=== PATIENT | male | born 1975 | race Caucasian/White ===

== ENCOUNTER 2019-10-05 19:23 | Emergency (ER) | payer OTHER, SELFPAY ==
--- NOTE | ~2019-10-05 | CT_ITS ---
EXAMINATION: CT BRAIN W/O DATE: 10/05/2019 20:16 INDICATION: Headache. Dizziness. TECHNIQUE: Computed tomography (CT) of the head was performed without intravenous contrast. The dose- length product was 605.33 mGy-cm. The mA was adjusted according to patient size. Iterative reconstruc tion technique was employed. COMPARISON: CT dated 02/02/2017 FINDINGS: Normal brain parenchymal volume for age. Normal draper-white differentiation. No acute intrac ranial hemorrhage, infarction, mass or mass effect. No ventriculomegaly or midline shift. Midline sagittal images demonstrate a normal corpus callosum, c raniovertebral junction and sella turcica. Basilar cisterns are patent. Mild mucosal thickening of the maxillary and ethmoid sinuses. Mastoids are pneumatized. IMPRESSION: 1. No acute intracranial abnormality. 2: Mild sinusitis. Reviewed, dictated and finalized at location A.
--- NOTE | ~2019-10-05 | CT_ITS ---
EXAMINATION: CT cervical spine wo con DATE: 10/05/2019 20:20 INDICATION: Syncope. Fall. Neck pain. TECHNIQUE: Computed tomography (CT) of the cervical spine was performed without intravenous contrast. The dose-length product was 442 mGy-cm. Automated exposure control and iterative reconstruction tech nique were employed. COMPARISON: None FINDINGS: There is straightening of cervical lordosis. Prominent dorsal osteophytes present at C3-4, C4-5 and C5-6. Odontoid process within normal limits. No evidence for perched facet. There is mild-mo derate multilevel uncinate hypertrophy. Skull base is unremarkable. Craniovertebral junction within n ormal limits. No significant paraspinal soft tissue abnormality. There are mild uncinate degenerative changes at C3-4 and C4-5. IMPRESSION: 1. No acute abnormality of the cervical spine. Reviewed, dictated and finalized at location A.
--- NOTE | ~2019-10-05 | XR_ITS ---
XR ankle RT min 3V 10/05/2019 20:15 Indication: Right ankle pain after fall Procedure: 3 views right ankle Comparison: No prior studies for comparison. Findings: There is a mildly displaced spiral fracture distal fibular diaphysis. There is an avulsion fracture of the medial malleolus with widening of the medial ankle mortise. Talar dome unremarkable. There are degenerative calcaneal enthesophytes. Impression: 1: Mildly displaced spiral fracture distal fibular diaphysis. 2: Avulsion fracture medial malleolus with widening of the medial ankle mortise. Reviewed, dictated and finalized at location A. Impression: 1: Mildly displaced spiral fracture distal fibular diaphysis. 2: Avulsion fracture medial malleolus with widening of the medial ankle mortis e.
[2019-10-05 19:40] VITALS: BP 115/76; PULSE 92; RESP 18; TEMP 36.3; O2SAT 98
--- NOTE | 2019-10-05 19:40 | ECG_ITS ---
Measurements Intervals [place] Rate: 87 P: 23 RI: 175 QRS: -7 QRSD: 104 T: 24 QT: 349 QTc: 420 Interpretive Statements SINUS RHYTHM POSSIBLE LEFT ATRIAL ENLARGEMENT INCOMPLETE RIGHT BUNDLE BRANCH BLOCK POSSIBLE LEFT VENTRICULAR HYPERTROPHY BASELINE WANDER- V6 BORDERLINE ECG Electronically Signed On 10-07-2019 7:02:10 CDT by Kalpesh Rangel D.O.
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
[2019-10-05] MEDS: SODIUM CHLORIDE 0.9% IV 1,000 ML 999 ML IV CONT (20:25)
--- NOTE | 2019-10-05 20:39 | PC.NURSE ---
[facility] contacted to consult ortho.
[2019-10-05 20:53] LABS: Hematocrit 44.4 % (40.0-54.0); Hemoglobin 14.5 g/dL (14.0-18.0); Mean Corpuscular HGB Conc 32.7 g/dL (32.0-36.0); Mean Corpuscular Hemoglobin 29.8 pg (27.0-31.0); Mean Corpuscular Volume 91.2 fL (78.0-102.0); Mean Platelet Volume 9.3 fl (8.7-11.0); Platelet Count Result 338 K/mm3 (150-420); Red Blood Count 4.87 M/mm3 (4.70-6.10); Red Cell Distribution Width 14.1 % (11.6-14.4); White Blood Count 18.7 K/mm3 (4.8-10.8)
[2019-10-05 20:55] LABS: Partial Thromboplastin Time 25.6 SEC (22.3-31.6); Prothrombin Time 10.5 Seconds (9.64-11.0)
[2019-10-05 21:06] LABS: Alanine Aminotransferase 21 U/L (16-63); Albumin Level 3.9 g/dL (3.4-5.0); Alkaline Phosphatase 62 U/L (46-116); Anion Gap 8.1 mmol/L (7-16); Aspartate Amino Transferase 15 U/L (15-37); Bilirubin,Total 0.5 mg/dL (0.00-1.00); Blood Urea Nitrogen 19 mg/dL (7-18); Calcium 8.8 mg/dL (8.5-10.1); Carbon Dioxide 31 mmol/L (21-32); Chloride 101 mmol/L (98-108); Estimated CRCL calculation 88 ml/min; Estimated Glomerular Filt Rate > 60; Ethanol < 3 mg/dL (0-6); Glucose 124 mg/dL (70-99); Osmolality Calculated 285 mOsm/kg (285-295); Potassium 4.1 mmol/L (3.5-5.1); Sodium 136 mmol/L (136-145); Total Protein 8.2 g/dL (6.4-8.2); Troponin I < 0.02 ng/mL (0.00-0.056)
[2019-10-05 21:34] VITALS: BP 108/85; PULSE 78; RESP 18; O2SAT 98
== END 2019-10-05 22:10 | disposition home or self-care (01) ==
PROVIDERS: Emergency Provider Family Medicine
DX: S82.891A Other fracture of right lower leg, initial encounter for closed fracture (principal); W19.XXXA Unspecified fall, initial encounter
CPT/HCPCS: 36415; 70450; 72125; 73610; 80053; 80307; 84484; 85027; 85610; 85730; 93005; 96360; 99283; 99284; A9270; J7030

== ENCOUNTER 2019-10-07 09:30 | Outpatient (CLI) | payer OTHER, SELFPAY ==
[2019-10-07 09:49] LABS: Basophils Absolute Auto 0.04 K/mm3 (0.00-0.10); Basophils Percent Auto 0.4 % (0.0-1.0); Eosinophils Absolute Auto 0.41 K/mm3 (0.02-0.50); Eosinophils Percent Auto 3.6 % (1.0-6.0); Hematocrit 41.6 % (40.0-54.0); Hemoglobin 13.2 g/dL (14.0-18.0); Immature Granulocyte Absolute 0.04 K/mm3 (0.00-0.00); Immature Granulocyte Percent A 0.4 % (0.0-0.0); Lymphocytes Absolute Auto 1.65 K/mm3 (1.10-4.50); Lymphocytes Percent Auto 14.7 % (18.0-42.0); Mean Corpuscular HGB Conc 31.7 g/dL (32.0-36.0); Mean Corpuscular Hemoglobin 29.3 pg (27.0-31.0); Mean Corpuscular Volume 92.4 fL (78.0-102.0); Monocytes Absolute Auto 0.89 K/mm3 (0.10-0.90); Monocytes Percent Auto 7.9 % (2.0-11.0); Neutrophils Absolute Auto 8.2 K/mm3 (1.7-7.2); Platelet Count Result 291 K/mm3 (150-420); Red Cell Distribution Width 14.5 % (11.6-14.4); White Blood Count 11.3 K/mm3 (4.8-10.8)
[2019-10-07 09:54] LABS: Appearance Urine Clear (Clear); Bilirubin Urine Negative (Negative); Color Urine Yellow (Yellow); Glucose Urine UA Negative (Negative); Ketones Urine Negative (Negative); Leukocyte Esterase Ur Negative LEU/UL (Negative); Nitrate Urine Negative (Negative); Protein Urine Negative (Negative); Specific Grav Ur >= 1.030 (1.010-1.020); Urobilinogen Urine 0.2 mg/dL (0.2-1.0); pH Urine 5.5 (5.0-8.0)
[2019-10-07 09:59] LABS: Add Urine Microscopic? YES; Blood Urine Trace-Intact (Negative); RBC Urine 0-2 /hpf (0-2); WBC Urine 0-3 /hpf (0-3)
[2019-10-07 10:00] LABS: Bacteria Urine Trace /hpf; Mucus Urine Few /lpf
[2019-10-07 10:54] LABS: Erythrocyte Sedimentation Rate 15 mm/hr (0-15)
[2019-10-07 11:11] LABS: RFT Charge Test YES; Rheumatoid Factor Screen Positive (Negative); Rheumatoid Factor Titer 1:4/40 (Negative)
[2019-10-07 13:46] LABS: Alanine Aminotransferase 19 U/L (16-63); Albumin Level 3.5 g/dL (3.4-5.0); Alkaline Phosphatase 56 U/L (46-116); Anion Gap 10.2 mmol/L (7-16); Aspartate Amino Transferase 15 U/L (15-37); Bilirubin,Total 0.4 mg/dL (0.00-1.00); Blood Urea Nitrogen 17 mg/dL (7-18); CRP 5.2 mg/dL (0.0-0.9); Calcium 8.7 mg/dL (8.5-10.1); Carbon Dioxide 29 mmol/L (21-32); Chloride 105 mmol/L (98-108); Estimated Glomerular Filt Rate > 60; Glucose 127 mg/dL (70-99); Osmolality Calculated 293 mOsm/kg (285-295); Potassium 4.2 mmol/L (3.5-5.1); Sodium 140 mmol/L (136-145); Total Protein 7.1 g/dL (6.4-8.2)
== END 2019-10-07 09:31 | disposition home or self-care (01) ==
PROVIDERS: PCP Nurse Practitioner Family; Visit Provider Internal Medicine Rheumatology
DX: M05.79 Rheumatoid arthritis with rheumatoid factor of multiple sites without organ or systems involvement (principal); Z79.899 Other long term (current) drug therapy; Z51.81 Encounter for therapeutic drug level monitoring
CPT/HCPCS: 36415; 80053; 81001; 85025; 85652; 86140; 86430; 86431

== ENCOUNTER 2019-10-08 07:32 | Outpatient (CLI) | payer OTHER, SELFPAY ==
[2019-10-08 19:35] LABS: SARS-CoV-2 RNA PCR Negative
== END 2019-10-08 07:33 | disposition home or self-care (01) ==
LOC: ANHCOVIDDT 07:32
PROVIDERS: PCP Nurse Practitioner Family; Visit Provider Orthopaedic Surgery
DX: Z01.812 Encounter for preprocedural laboratory examination (principal); Z11.59 Encounter for screening for other viral diseases
CPT/HCPCS: 87635; C9803; U0003

== ENCOUNTER 2019-10-10 02:06 | Day surgery (SDC) | payer OTHER, SELFPAY ==
[2019-10-07 16:15] VITALS: BMI 40.1
--- NOTE | 2019-10-09 09:24 | P.PNAN_ITS ---
Anes - Initial Pre Proc Eval Procedure: Operation Date: 10/10/19 09:30 Proposed Procedures p Open Reduction Internal Fixation of Right Ankle Fracture - Mk Hall MD s Right Syndesmosis, Possible Deltoid Ligament Repair - Mk Hall MD Date/Time: 10/09/19 09:24 Surgeon: Mk Hall MD Pre Op Diagnosis: Right Ankle Fracture Patient Data Age: 44 Gender: M Height: 1.78 m Weight: 127.01 kg Allergies Allergy/AdvReac Type Severity Reaction Status Date / Time Contrast Media Allergy Mild Unknown Uncoded 10/07/19 15:48 IVP dye Allergy Mild Unknown Uncoded 10/07/19 15:48 Home Medications Medication Instructions Recorded Confirmed Type methotrexate sodium 10 mg tablet 10 mg PO WEEKLY 03/11/19 10/07/19 History hydrocodone-acetaminophen [[place]] 1 tablet PO Q6H PRN #20 tablet 10/05/19 10/07/19 Rx hydroxychloroquine 200 mg PO BID 10/05/19 10/07/19 History folic acid 1 mg PO DAILY 10/07/19 10/07/19 History ibuprofen 800 mg PO Q6H PRN 10/07/19 10/07/19 History Patient hx anesthesia problems: none Family hx anesthesia problems: none PMFSH Past Medical History Medical History (Updated 10/08/19 @ 12:41 by Alina Keenan, RT(R)) Ankle syndesmosis disruption Closed right fibular fracture Dizziness Lupus (systemic lupus erythematosus) Rheumatoid arthritis Tear of deltoid ligament of right ankle Vertigo Vision abnormalities Family History Family History (Updated 10/08/19 @ 12:42 by Alina Keenan RT(R)) Father Hypertension Other Arthritis Diabetes mellitus Nerve disorder Social History Social History Years smoked: 10 Smoking status: Unknown if ever smoked Tobacco type: cigarettes Second hand tobacco smoke exposure: No Smoking end date: 03/22/04 Alcohol intake: current Alcohol use details: occasionally drink- maybe 3 beers a month Substance use: never Last use: 2004 Living arrangements: with family Spiritual care concerns: No Anes - Eval Final PreProcedure Day of Procedure 10/09/19 09:24 Patient weight: morbidly obese Heart: regular rate and rhythm Lungs: clear to auscultation and normal air movement Airway: Mallampati scale class II Neurological: alert and oriented Last oral intake: >/= 8 hours ASA classification: III Emergent: no Anesthetic plan: proceed Anesthesia type and monitoring: general LMA and standard monitoring Informed Consent: The patient's anesthetic plan and its attendant risks and benefits were discussed with the patient/family/POA. Questions were solicited and answers provided to the satisfaction of the patient/family/POA.
[2019-10-10] VITALS (9 sets, daily range): BP systolic 108–144; BP diastolic 56–91; PULSE 67–91; RESP 14–20; TEMP 36.1–36.6; O2SAT 94–99
--- NOTE | ~2019-10-10 | XR_ITS ---
EXAMINATION: XR surgery orthopedic DATE: 10/10/2019 09:40 INDICATION: ORIF right ankle fracture TECHNIQUE: 3 fluoroscopic spot images of the right ankle were obtained during procedure performed by Dr. Hall . Radiologist was not present for the imaging or procedure. The amount of fluoroscopy time used durin g this procedure was 0.7 minutes. COMPARISON: 10/05/2019 FINDINGS: Interval open reduction and internal fixation of the previously seen comminuted fracture at the dista l diaphysis of the right fibula with a lateral plate and screws. There is also been reduction of the previously subluxed tibiotalar articulation which is fixed with a pair of tightrope type syndesmotic fixations with metallic buttons at both the medial and lateral sides of lucent holes extending across the distal metaphyseal region of the tibia and fibula. Alignment post fixation appears near-anatomic . The tiny avulsion fracture previously seen at the tip of the medial malleolus is not visualized lik patrick collimated beyond the margins of the field of imaging on the frontal projections. IMPRESSION: 1. Near-anatomic alignment post internal fixation of a Barker type C injury pattern at the right ankle . Reviewed, dictated and finalized at location A. IMPRESSION: 1. Near-anatomic alignment post internal fixation of a Barker type C injury gianna cristin at the right ankle.
[2019-10-10] MEDS: LACTATED RINGERS 1,000 ML 30 ML IV CONT ×2 (06:30→10:59)
[2019-10-10] MEDS: KETOROLAC 15 MG/ML VIAL (*BKC) IV PUSH (06:39)
--- NOTE | 2019-10-10 06:46 | WPDHPUPDATE1 ---
History and Physical Update Update Date/Time: 10/10/19 06:46 History and Physical has been reviewed, including an updated exam of the patient. There are NO changes in the patient's condition. Covid test negative Risks, benefits, and alternatives have been discussed and questions answered. Patient agrees to proceed with procedure.
[2019-10-10] MEDS: ceFAZolin 3 GM/D5W 100 ML 100 ML IVPB (08:07)
--- NOTE | 2019-10-10 10:34 | PM.PROC ---
Procedure Note - Detailed Date of procedure: 10/10/19 Pre-op diagnosis: Right Ankle Fracture Right ankle fibular fracture with syndesmosis disruption, deltoid ligament tear Post-op diagnosis: same Procedure performed: open reduction internal fixation fibular fracture, open reduction internal fixation syndesmosis. Description of procedure: Operative indications: Patient is a 44 year-old man who sustained an injury to the right ankle. Radiographs show fibular fracture with displacement. Widening of the ankle mortise noted. disruption of the syndesmosis noted. Patient presents for operative treatment. Full discussion of the risks, benefits and alternatives of surgery was had with the patient. Questions answered. Patient verbalizes understanding and wishes to proceed. What was done: After informed consent, the operative extremity was marked in the preoperative holding area. Patient received intravenous antibiotics. Patient was then taken to the operating room and underwent general anesthesia by the anesthesia team. They were positioned supine on the operating room table. A time-out was performed confirming the patient, site of the surgery, operative plan. Lower extremity then prepped and draped in the usual sterile surgical fashion using ChloraPrep skin solution. Foot and ankle exsanguinated and a thigh tourniquet inflated to 250 mmHg. Longitudinal incision made over the lateral ankle distal fibula with a 15 blade knife. Hemostasis controlled with electrocautery. Full-thickness soft tissue flaps developed and the fascia was incised in line with the skin incision. Fracture identified and cleared with a dental pick, irrigation and rongeur. Fracture reduced and held with bone-holding clamp. Image intensification confirmed reduction of the fracture and the ankle mortise. Fixation achieved with Neutralization with a lateral plate with unicortical screws distal to fracture and bicortical screws proximal to the fracture. Good alignment and stability of the fracture noted. Image intensification used to confirm reduction of the fracture and placement of the hardware. Fibula then reduced in the syndesmosis and verified with image intensification. With the ankle in a neutral position fixation of the syndesmosis achieved with the Arthrex tight rope suture button fixation system. Drill placed from lateral to medial in verified with image intensification. Tight rope passed and secured. Two of these used for fixation. Stress of the ankle performed with good stability of the ankle mortise in all directions. Good stability of the syndesmosis noted. No increased medial widening or instability noted. No deltoid repair indicated Wound thoroughly irrigated with antibiotic solution. Fascia repaired with 00 Vicryl interrupted suture. Subcutaneous tissue repaired with 000 Monocryl interrupted suture and juno for the skin. Sterile dressings applied. bulky dressing and cast applied. Tourniquet released and good capillary refill noted in the toes. Patient awoken from anesthesia, extubated and taken to the recovery room in stable condition. All sponge, needle and instrument counts correct at the end of the case. Palpable dorsalis pedis pulse noted prior to dressing. Implants: Arthrex 10 hole plate with 3.5 mm cortical screws and Arthrex tight rope suture repair x2 Anesthesia: GLMA Surgeon: Mk Hall MD [employer]: 1st administrative support assistant Estimated blood loss (mL): 50 Tourniquet time (min): 65 Drains: No Packing: No Pathology: none sent Complications: None Condition: stable Disposition: PACU
== END 2019-10-10 12:10 | disposition home or self-care (01) ==
PROVIDERS: PCP Nurse Practitioner Family; Visit Provider Orthopaedic Surgery
PROC: (CPT 27829; principal; 2019-10-10 07:30)
PROC: (CPT 27829; 2019-10-10 07:30)
DX: S82.831A Other fracture of upper and lower end of right fibula, initial encounter for closed fracture (principal); S93.431A Sprain of tibiofibular ligament of right ankle, initial encounter; W18.39XA Other fall on same level, initial encounter; M32.9 Systemic lupus erythematosus, unspecified; Z87.891 Personal history of nicotine dependence; E66.01 Morbid (severe) obesity due to excess calories; Z68.41 Body mass index [BMI] 40.0-44.9, adult
CPT/HCPCS: 27829; 27792; A9270; C1713; J0690; J1100; J1885; J2001; J2250; J2405; J2704; J3010; J7120

== ENCOUNTER 2019-12-04 14:56 | Outpatient (CLI) | payer OTHER, SELFPAY ==
--- NOTE | ~2019-12-04 | XR_ITS ---
XR shoulder RT min 2V DATE: 12/04/2019 15:17 INDICATION: Fall, right shoulder TECHNIQUE: 4 views COMPARISON: None FINDINGS: No fracture or dislocation, periosteal reaction or bone destruction. There is mild degenerative change at the right acromioclavicular joint. No abnormal soft tissue calc ification. IMPRESSION: Degenerative change at right acromioclavicular joint Reviewed, dictated and finalized at location B.
== END 2019-12-04 14:57 | disposition home or self-care (01) ==
LOC: CHSIMG 14:57
PROVIDERS: PCP Nurse Practitioner Family; Visit Provider Nurse Practitioner Family
DX: M25.511 Pain in right shoulder (principal)
CPT/HCPCS: 73030

== ENCOUNTER 2020-02-01 21:49 | Emergency (ER) | payer OTHER, SELFPAY ==
[2020-02-01 22:05] VITALS: BP 146/77; PULSE 86; RESP 19; TEMP 37.1; O2SAT 98
--- NOTE | 2020-02-01 22:15 | ED.GENADULT ---
HPI - General Adult General Chief complaint: Upper Respiratory Infection Stated complaint: sob Source: patient Mode of arrival: ambulatory Limitations: no limitations History of Present Illness HPI narrative: is a 44M with a PMH of SLE/RA that presented to the ED with 2 weeks of not being able to take a deep breath. He reports that when he lays back he gets the sensation the he cannot get a deep breath. He also feels like he needs to cough something up but can't despite taking mucinex. He had a sinus infection 2 weeks ago treated with non-antibiotic meds and it resolved. However, after this he got the sensation in his chest that he cannot get a deep breath. There is no shortness of breath with exercise or any exercise intolerance. He has had no fevers, chills, N/V, chest pain, near-syncope or syncope, body aches or sick contacts. Related Data Home Medications Medication Instructions Recorded Confirmed folic acid 1 mg PO DAILY 10/07/19 02/01/20 hydroxychloroquine 200 mg PO DAILY 02/01/20 02/01/20 methotrexate sodium 10 mg PO WEEKLY 02/01/20 02/01/20 Allergies Allergy/AdvReac Type Severity Reaction Status Date / Time iohexol Allergy Hives Verified 02/01/20 22:11 [From contrast - CT, X-RAY] Review of Systems Constitutional: Constitutional: Denies chills, Denies fever(s) and Denies weakness Eyes: Eyes: Reports no additional eye complaints ENT: Reports system reviewed and no additional complaints, except as documented Cardiovascular: Cardiovascular: Reports no additional cardiovascular complaints Respiratory: Respiratory: Reports as per HPI Gastrointestinal: Gastrointestinal: Reports no additional gastrointestinal complaints Genitourinary: Genitourinary: Reports no additional male genitourinary complaints Musculoskeletal: Musculoskeletal: Reports no additional musculoskeletal complaints Integumentary/Breasts: Skin/Breast: Reports system reviewed and no additional complaints, except as docu Neurologic: Reports system reviewed and no additional complaints, except as documented Psychiatric: Psychiatric: Reports no additional psychiatric complaints Endocrine: Endocrine: Reports no additional endocrine complaints Hematologic/Lymphatic: Hematologic/Lymphatic: Reports no additional hematologic/lymphatic complaints Allergic/Immunologic: Allergic/Immunologic: Reports no additional allergic/immunologic complaints [facility] Past Medical History Medical History (Updated 02/01/20 @ 22:31 by Henrik Brown DO) Ankle syndesmosis disruption Closed right fibular fracture Dizziness Lupus (systemic lupus erythematosus) Overweight Rheumatoid arthritis Tear of deltoid ligament of right ankle Vertigo Vision abnormalities Family History Family History Father Hypertension Other Arthritis Diabetes mellitus Nerve disorder Social History Social History Years smoked: 10 Tobacco type: cigarettes Second hand tobacco smoke exposure: No Smoking end date: 03/22/04 Alcohol intake: current Substance use: never Spiritual care concerns: No Exam Const: General: no acute distress and alert Orientation/consciousness: patient oriented x3 Limitations: No altered mental status HENMT: Other: normocephalic, atraumatic. Erythematous nasal turbinates Eyes: Conjunctivae: conjunctivae normal Pupils: Equal, round and reactive pupils present Neck: Neck: normal visual inspection Chest: Chest palpation & inspection: normal inspection of the chest Resp: Effort & Inspection: normal respiratory effort Other: Prolonged expiratory phase with end expiratory wheezing. Dry cough present on exam Cardio: Rate: regular rate Rhythm: regular rhythm GI: GI Palp: Yes Soft to palpation, No Tenderness to palpation present (GI) and No Guarding due to palpation present (GI) Urinary Catheter: Urinary Cath
[2020-02-01] MEDS: ALBUTEROL SULFATE NEB 2.5 MG/3 ML INH INHALATION (22:19)
[2020-02-01 22:20] VITALS: PULSE 85; RESP 16; O2SAT 100
[2020-02-01 22:25] VITALS: PULSE 88; RESP 16; O2SAT 97
[2020-02-01 22:43] VITALS: PULSE 88; O2SAT 98
== END 2020-02-01 22:44 | disposition home or self-care (01) ==
PROVIDERS: Emergency Provider Family Medicine; PCP Nurse Practitioner Family
DX: J40 Bronchitis, not specified as acute or chronic (principal); Z87.891 Personal history of nicotine dependence
CPT/HCPCS: 94640; 99283

== ENCOUNTER 2020-02-04 10:58 | Outpatient (CLI) | payer OTHER, SELFPAY ==
--- NOTE | ~2020-02-04 | XR_ITS ---
EXAMINATION: XR chest 2V EXAM DATE: 02/04/2020 11:16 INDICATION: Cough for 2 weeks. History of asthma and COPD. TECHNIQUE: Frontal and lateral projections of the chest obtained and reviewed. Comparison is made to prior examination from 02/22/2014. FINDINGS: The lungs are clear. There are no pleural effusions. The cardiomediastinal silhouette is within normal limits. There is no pneumothorax suspected. The bones and soft tissues are unremarkab le. IMPRESSION: Unremarkable chest x-ray exam. Reviewed, dictated and finalized at location A. [employer]
== END 2020-02-04 10:59 | disposition home or self-care (01) ==
PROVIDERS: PCP Family Medicine; Visit Provider Family Medicine
DX: R05 Cough (principal)
CPT/HCPCS: 71046

== ENCOUNTER 2020-02-17 12:44 | Outpatient (CLI) | payer OTHER, SELFPAY ==
[2020-02-18 22:42] LABS: SARS-CoV-2 RNA PCR Negative
== END 2020-02-17 12:45 | disposition home or self-care (01) ==
LOC: CHSLAB 12:47
PROVIDERS: PCP Family Medicine; Visit Provider Family Medicine
DX: Z20.828 Contact with and (suspected) exposure to other viral communicable diseases (principal)
CPT/HCPCS: 87635; C9803; U0003

== ENCOUNTER 2020-02-25 10:21 | Outpatient (CLI) | payer OTHER, SELFPAY ==
[2020-02-25 10:44] LABS: Hemoglobin A1C 6.1 % (<5.7)
[2020-02-25 11:54] LABS: Alanine Aminotransferase 33 U/L (16-63); Albumin Level 3.7 g/dL (3.4-5.0); Alkaline Phosphatase 69 U/L (46-116); Anion Gap 5 mmol/L (8-16); Aspartate Amino Transferase 13 U/L (15-37); Bilirubin,Total 0.3 mg/dL (0.00-1.00); Blood Urea Nitrogen 19 mg/dL (7-18); Calcium 8.9 mg/dL (8.5-10.1); Carbon Dioxide 31 mmol/L (21-32); Chloride 103 mmol/L (98-108); Cholesterol 144 mg/dL (0-200); Estimated Glomerular Filt Rate > 60; Glucose 103 mg/dL (70-99); HDL Direct 38 mg/dL (40-60); LDL Cholesterol Calculated 95 mg/dL (<130); Osmolality Calculated 290 mOsm/kg (285-295); Potassium 4.7 mmol/L (3.5-5.1); Sodium 139 mmol/L (136-145); Total Protein 7.4 g/dL (6.4-8.2); Triglycerides 55 mg/dL (0-150)
== END 2020-02-25 10:22 | disposition home or self-care (01) ==
LOC: CHSLAB 10:25
PROVIDERS: PCP Nurse Practitioner Family; Visit Provider Nurse Practitioner Family
DX: Z00.00 Encounter for general adult medical examination without abnormal findings (principal); R73.9 Hyperglycemia, unspecified
CPT/HCPCS: 36415; 80053; 80061; 83036

== ENCOUNTER 2020-08-03 00:43 | Emergency (ER) | payer OTHER, SELFPAY ==
--- NOTE | ~2020-08-03 | XR_ITS ---
EXAMINATION: XR chest 2V DATE: 08/03/2020 01:24 INDICATION: Chest pain. TECHNIQUE: Frontal and lateral views of the chest were obtained. COMPARISON: Chest 2 views 02/04/2020 FINDINGS: The chest demonstrates clear lungs without pneumonia, pleural effusion, or pneumothorax. Th e heart size is normal. IMPRESSION: 1. No acute cardiopulmonary disease. Reviewed, dictated and finalized at location A.
--- NOTE | 2020-08-03 00:46 | ECG_ITS ---
Measurements Intervals [place] Rate: 84 P: 43 SD: 152 QRS: 1 QRSD: 104 T: 40 QT: 354 QTc: 420 Interpretive Statements SINUS RHYTHM VOLTAGE CRITERIA FOR LVH BORDERLINE ECG Electronically Signed On 08-03-2020 6:51:42 CDT by Kalpesh Rangel D.O.
[2020-08-03 00:55] VITALS: BP 144/78; PULSE 87; RESP 20; TEMP 36.6; O2SAT 98
[2020-08-03 01:24] LABS: Basophils Absolute Auto 0.05 K/mm3 (0.00-0.10); Basophils Percent Auto 0.5 % (0.0-1.0); Eosinophils Absolute Auto 0.41 K/mm3 (0.02-0.50); Eosinophils Percent Auto 3.8 % (1.0-6.0); Hematocrit 42.8 % (40.0-54.0); Hemoglobin 13.7 g/dL (14.0-18.0); Immature Granulocyte Absolute 0.03 K/mm3 (0.00-0.00); Immature Granulocyte Percent A 0.3 % (0.0-0.0); Lymphocytes Absolute Auto 2.39 K/mm3 (1.10-4.50); Lymphocytes Percent Auto 22.2 % (18.0-42.0); Mean Corpuscular Hemoglobin 28.9 pg (27.0-31.0); Mean Corpuscular Volume 90.3 fL (78.0-102.0); Mean Platelet Volume 9.5 fl (8.7-11.0); Monocytes Absolute Auto 0.97 K/mm3 (0.10-0.90); Neutrophils Absolute Auto 6.9 K/mm3 (1.7-7.2); Neutrophils Percent Auto 64.2 % (50.0-70.0); Platelet Count Result 317 K/mm3 (150-420); Red Blood Count 4.74 M/mm3 (4.70-6.10); Red Cell Distribution Width 13.4 % (11.6-14.4); White Blood Count 10.8 K/mm3 (4.8-10.8)
[2020-08-03 01:35] LABS: D Dimer 0.31 mg/L (0.19-0.50)
[2020-08-03 01:42] LABS: Alanine Aminotransferase 24 U/L (16-63); Albumin Level 3.2 g/dL (3.4-5.0); Alkaline Phosphatase 65 U/L (46-116); Anion Gap 8 mmol/L (8-16); Aspartate Amino Transferase < 10 U/L (15-37); Bilirubin,Total 0.3 mg/dL (0.00-1.00); Blood Urea Nitrogen 14 mg/dL (7-18); Calcium 8.7 mg/dL (8.5-10.1); Carbon Dioxide 31 mmol/L (21-32); Chloride 103 mmol/L (98-108); Estimated Glomerular Filt Rate > 60; Glucose 117 mg/dL (70-99); Lipase 46 U/L (73-393); NT Pro B Type Natriuretic Pept 42 pg/mL (0-125); Osmolality Calculated 295 mOsm/kg (285-295); Potassium 3.4 mmol/L (3.5-5.1); Sodium 142 mmol/L (136-145); Total Protein 7.3 g/dL (6.4-8.2); Troponin I 7.8 ng/L (0.00-60.4)
[2020-08-03 02:05] LABS: Appearance Urine Clear (Clear); Bilirubin Urine Negative (Negative); Color Urine Yellow (Yellow); Glucose Urine UA Negative (Negative); Ketones Urine Negative (Negative); Leukocyte Esterase Ur Negative LEU/UL (Negative); Nitrate Urine Negative (Negative); Protein Urine Negative (Negative); Specific Grav Ur >= 1.030 (1.010-1.020); Urobilinogen Urine 0.2 mg/dL (0.2-1.0); pH Urine 5.5 (5.0-8.0)
[2020-08-03 02:09] LABS: Add Urine Microscopic? YES; Bacteria Urine Trace /hpf; Blood Urine Trace-Intact (Negative); Mucus Urine Moderate /lpf; RBC Urine 0-2 /hpf (0-2); Squamous Epithelial Cell Urine Rare /hpf (Few); WBC Urine None seen /hpf (0-3)
--- NOTE | 2020-08-03 02:26 | ED.CHESTPAIN ---
HPI - Chest Pain General Chief Complaint: Chest Pain Stated Complaint: CHEST PAIN Time Seen by Provider: 08/03/20 00:46 Source: patient Mode of arrival: ambulatory Limitations: no limitations History of Present Illness HPI narrative: this is a 44-year-old gentleman with no previous past medical history nonsmoker presents with chest discomfort that is been going on for the last couple of days episodic off and on with no nausea vomiting no diaphoresis has had some chest congestion with no shortness of breath no fever or chills. Patient denies any past medical history of heart disease no family history of heart disease. The pain is a sharp pain in nature mid sternum to right sternal wall tender with palpation and movement. MD complaint: chest discomfort Onset (ago): day(s) Timing of current episode: episodic Prior episodes: Yes Onset: during rest Pain location: right chest Pain radiation: none Severity: mild Related Data Home Medications Medication Instructions Recorded Confirmed folic acid 1 mg PO DAILY 10/07/19 02/01/20 hydroxychloroquine 200 mg PO DAILY 02/01/20 02/01/20 methotrexate sodium 10 mg PO WEEKLY 02/01/20 02/01/20 Allergies Allergy/AdvReac Type Severity Reaction Status Date / Time iohexol Allergy Hives Verified 02/25/20 10:00 [From contrast - CT, X-RAY] Review of Systems Review of Systems: All systems reviewed & are unremarkable except as noted in HPI and below PMFSH Past Medical History Medical History (Updated 08/03/20 @ 02:30 by Ernst Alfonso MD) Ankle syndesmosis disruption Closed right fibular fracture Dizziness Lupus (systemic lupus erythematosus) Overweight Rheumatoid arthritis Tear of deltoid ligament of right ankle Vertigo Vision abnormalities Family History Family History Father Hypertension Other Arthritis Diabetes mellitus Nerve disorder Social History Social History Years smoked: 10 Smoking status: Former smoker Second hand tobacco smoke exposure: No Smoking end date: 03/22/04 Alcohol intake: current Substance use: never Spiritual care concerns: No Exam Const: General: cooperative, healthy appearing, comfortable, no acute distress, well developed, alert, awake and Physically active HENMT: Head: normal to inspection Ears: hearing grossly normal bilaterally General nose exam: Normal external nose present Face and sinus: normal facial exam Mouth: Yes Normal oral and palatal mucosa present Eyes: General: appearance normal, both eyes and all related structures Neck: Neck: normal visual inspection Chest: Chest palpation & inspection: normal inspection of the chest Resp: Effort & Inspection: normal respiratory effort Cardio: Jugular venous distension: no JVD Palpation: normal PMI Rate: regular rate Rhythm: regular rhythm GI: Inspection: normal to inspection Back/Spine/Pelvis: Back: no CVA tenderness Skin: General skin exam: normal color and no rashes or lesions noted Neuro: General: oriented to person, oriented to place, oriented to time and patient oriented x3 Extrem: General: normal to inspection, full ROM and capillary refill normal Psych: Appearance: grossly normal and well kempt Mental Status: mental status grossly normal Speech and movement: Normal speech and movement present Course Course Emergency Course: Currently no chest pain or chest discomfort it is episodic reviewed labs EKG was reviewed and chest x-ray view reviewed with patient. MDM - Chest Pain Lab Data Result diagrams: 08/03/20 00:58 08/03/20 00:58 Labs: Lab Results 08/03/20 08/03/20 08/03/20 Range/Units 00:57 00:58 00:58 WBC 10.8 (4.8-10.8) K/mm3 RBC 4.74 (4.70-6.10) M/mm3 Hgb 13.7 L (14.0-18.0) g/dL Hct 42.8 (40.0-54.0) % MCV 90.3 (78.0-102.0) fL MCH 28.9 (27.0-31.0) pg
[2020-08-03 02:36] VITALS: BP 152/88; PULSE 88; RESP 20; O2SAT 98
== END 2020-08-03 02:37 | disposition home or self-care (01) ==
PROVIDERS: Emergency Provider Emergency Medicine
DX: R07.89 Other chest pain (principal); M32.9 Systemic lupus erythematosus, unspecified; M06.9 Rheumatoid arthritis, unspecified; E66.3 Overweight; H53.9 Unspecified visual disturbance; Z87.891 Personal history of nicotine dependence
CPT/HCPCS: 36415; 71046; 80053; 81001; 83690; 83880; 84484; 85025; 85380; 93005; 99283; 99284

== ENCOUNTER 2021-12-08 12:25 | Emergency (ER) | payer OTHER, SELFPAY ==
--- NOTE | ~2021-12-08 | XR_ITS ---
EXAMINATION: XR chest 1V portable DATE: 12/08/2021 13:07 INDICATION: Chest tightness. TECHNIQUE: A single frontal view of the chest was obtained on 2 radiographs. COMPARISON: Chest 2 views 08/03/2020 FINDINGS: There is no pneumonia, pleural effusion, or pneumothorax. The heart size is normal. IMPRESSION: 1. No acute cardiopulmonary disease. Reviewed, dictated and finalized at location A.
[2021-12-08 12:29] VITALS: BP 145/100; PULSE 58; RESP 18; TEMP 36.4; O2SAT 100
--- NOTE | 2021-12-08 12:37 | ECG_ITS ---
Measurements Intervals [place] Rate: 63 P: 42 NH: 187 QRS: 10 QRSD: 107 T: 42 QT: 384 QTc: 395 Interpretive Statements SINUS RHYTHM POSSIBLE LEFT ATRIAL ENLARGEMENT LEFT VENTRICULAR HYPERTROPHY BORDERLINE ECG COMPARED TO ECG 08/03/2020 00:55:55 NO SIGNIFICANT CHANGES Electronically Signed On 12-08-2021 14:54:28 CDT by Arturo Macias M.D.
[2021-12-08 13:04] LABS: Basophils Absolute Auto 0.05 K/mm3 (0.00-0.10); Basophils Percent Auto 0.5 % (0.0-1.0); Eosinophils Absolute Auto 0.32 K/mm3 (0.02-0.50); Hematocrit 42.4 % (40.0-54.0); Hemoglobin 13.5 g/dL (14.0-18.0); Immature Granulocyte Absolute 0.04 K/mm3 (0.00-0.00); Immature Granulocyte Percent A 0.4 % (0.0-0.0); Lymphocytes Absolute Auto 1.74 K/mm3 (1.10-4.50); Lymphocytes Percent Auto 16.2 % (18.0-42.0); Mean Corpuscular HGB Conc 31.8 g/dL (32.0-36.0); Mean Corpuscular Hemoglobin 29.2 pg (27.0-31.0); Mean Corpuscular Volume 91.6 fL (78.0-102.0); Mean Platelet Volume 9.2 fl (8.7-11.0); Monocytes Absolute Auto 0.77 K/mm3 (0.10-0.90); Monocytes Percent Auto 7.2 % (2.0-11.0); Neutrophils Absolute Auto 7.8 K/mm3 (1.7-7.2); Neutrophils Percent Auto 72.7 % (50.0-70.0); Platelet Count Result 343 K/mm3 (150-420); Red Blood Count 4.63 M/mm3 (4.70-6.10); Red Cell Distribution Width 13.8 % (11.6-14.4); White Blood Count 10.8 K/mm3 (4.8-10.8)
[2021-12-08 13:27] LABS: Partial Thromboplastin Time 29.6 SEC (23.90-30.70); Prothrombin Time 11.2 Seconds (9.50-12.10)
[2021-12-08 13:33] LABS: Anion Gap 6 mmol/L (8-16); Aspartate Amino Transferase 13 U/L (15-37); Bilirubin,Total 0.6 mg/dL (0.00-1.00); Blood Urea Nitrogen 14 mg/dL (7-18); Calcium 8.6 mg/dL (8.5-10.1); Carbon Dioxide 29 mmol/L (21-32); Chloride 103 mmol/L (98-108); Estimated CRCL calculation 168 ml/min; Estimated Glomerular Filt Rate > 60; Glucose 98 mg/dL (70-99); Osmolality Calculated 286 mOsm/kg (285-295); Potassium 3.9 mmol/L (3.5-5.1); Sodium 138 mmol/L (136-145)
[2021-12-08 13:34] LABS: Alanine Aminotransferase 19 U/L (16-63); Albumin Level 3.4 g/dL (3.4-5.0); Alkaline Phosphatase 59 U/L (46-116); CRP 3.6 mg/dL (0.0-0.9); NT Pro B Type Natriuretic Pept 111 pg/mL (0-125); Total Protein 7.2 g/dL (6.4-8.2); Troponin I 8.1 ng/L (0.00-60.4); Uric Acid 5.1 mg/dL (3.5-7.2)
[2021-12-08 13:46] VITALS: BP 149/98; PULSE 74; RESP 20; O2SAT 97
[2021-12-08 13:55] LABS: Appearance Urine Clear (Clear); Bilirubin Urine Negative (Negative); Blood Urine Negative (Negative); Glucose Urine UA Negative (Negative); Ketones Urine Negative (Negative); Leukocyte Esterase Ur Negative (Negative); Nitrate Urine Negative (Negative); Protein Urine Negative (Negative); Specific Grav Ur 1.015 (1.010-1.020); Urobilinogen Urine 0.2 mg/dL (0.2-1.0); pH Urine 6.5 (5.0-8.0)
[2021-12-08 13:56] LABS: Add Urine Microscopic? NO; Color Urine Light Yellow (Yellow)
[2021-12-08 14:13] LABS: Erythrocyte Sedimentation Rate 14 mm/hr (0-15)
--- NOTE | 2021-12-08 14:56 | ED.GENADULT ---
HPI - General Adult General Chief complaint: Chest Pain Stated complaint: RA flare up Time Seen by Provider: 12/08/21 12:34 Source: patient Mode of arrival: ambulatory History of Present Illness HPI narrative: 46-year-old male with a history of SLE, rheumatoid arthritis, bronchitis presents to the ER with a 1 day history of -- generalized joint pain. It includes the small joints of the hands, the knees ankles and feet -- swelling of MP joints and the PIP joints of both hands. -- Patient feels feverish and sick. -- Anterior chest pain which started around 4:00 a.m.. The pain was unprovoked. No radiation of the pain. No nausea vomiting. No shortness of breath or lightheadedness. Onset (ago): hour(s) ( Joint pain for the past 1 day. chest pain for the past 11 hours) Location: chest, upper extremity and lower extremity Radiation: non-radiation Severity: mild Quality: aching Pain Consistency: constant Relieving factors: none Exacerbating factors: none Associated symptoms: denies other symptoms Treatments prior to arrival: none Related Data Allergies Allergy/AdvReac Type Severity Reaction Status Date / Time iohexol Allergy Hives Verified 11/11/21 13:44 [From contrast - CT, X-RAY] Review of Systems Review of Systems: All systems reviewed & are unremarkable except as noted in HPI and below Constitutional: Constitutional: Reports as per HPI, Reports chills, Reports fatigue and Reports weakness Eyes: Eyes: Reports as per HPI and Reports no additional eye complaints ENT: Reports system reviewed and no additional complaints, except as documented and Reports as per HPI Cardiovascular: Cardiovascular: Reports as per HPI and Reports chest pain Respiratory: Respiratory: Reports as per HPI and Reports no additional respiratory complaints Gastrointestinal: Gastrointestinal: Reports as per HPI and Reports no additional gastrointestinal complaints Genitourinary: Genitourinary: Reports no additional male genitourinary complaints and Reports as per HPI Musculoskeletal: Musculoskeletal: Reports no additional musculoskeletal complaints, Reports as per HPI and Reports arthralgias Integumentary/Breasts: Skin/Breast: Reports system reviewed and no additional complaints, except as docu and Reports as per HPI Neurologic: Reports system reviewed and no additional complaints, except as documented and Reports as per HPI Psychiatric: Psychiatric: Reports no additional psychiatric complaints and Reports as per HPI Endocrine: Endocrine: Reports no additional endocrine complaints and Reports as per HPI Hematologic/Lymphatic: Hematologic/Lymphatic: Reports no additional hematologic/lymphatic complaints and Reports as per HPI Allergic/Immunologic: Allergic/Immunologic: Reports no additional allergic/immunologic complaints and Reports as per HPI PMFSH Past Medical History Medical History Ankle syndesmosis disruption Benign essential HTN Closed right fibular fracture Dizziness Hypokalemia Lupus (systemic lupus erythematosus) Obesity, Class III, BMI 40-49.9 (morbid obesity) Overweight Prediabetes Rheumatoid arthritis Tear of deltoid ligament of right ankle Vertigo Vision abnormalities Family History Family History Father Hypertension Other Arthritis Diabetes mellitus Nerve disorder Social History Social History Years smoked: 10 Smoking status: Former smoker Second hand tobacco smoke exposure: No Smoking end date: 03/22/04 Alcohol intake: current Alcohol use details: occasionally drink- maybe 3 beers a month Substance use: never Spiritual care concerns: No Exam Const: General: ill appearing Nutritional Appearance: well nourished Limitations: no limitations and altered mental status HENMT: Head: normal to inspection Ears: external e
[2021-12-08] MEDS: ONDANSETRON HCL ODT 4 MG TABLET PO (15:15)
[2021-12-08] MEDS: methylPREDNISolone SOD SUCC 125 MG VIAL IM (15:15)
[2021-12-08] MEDS: HYDROmorphone HCL INJ (*CRX) 2 MG/ML VIAL 1 MG IM (15:16)
[2021-12-08 15:34] VITALS: BP 138/99; PULSE 86; RESP 20; TEMP 36.6; O2SAT 97
--- NOTE | 2021-12-08 15:40 | PC.NURSE ---
explained no driving for 12 hours, voiced understanding
== END 2021-12-08 15:39 | disposition home or self-care (01) ==
PROVIDERS: Emergency Provider Internal Medicine Critical Care Medicine; PCP Family Medicine
DX: M06.9 Rheumatoid arthritis, unspecified (principal); R07.9 Chest pain, unspecified
CPT/HCPCS: 36415; 71045; 80053; 81003; 83880; 84484; 84550; 85025; 85610; 85652; 85730; 86140; 93005; 96372; 99284; A9270; J1170; J2930

== ENCOUNTER 2022-03-09 13:12 | Outpatient (CLI) | payer OTHER, SELFPAY ==
--- NOTE | ~2022-03-09 | US_ITS ---
EXAMINATION: US soft tissue UE RT DATE: 03/09/2022 13:41 INDICATION: R22.31 - Localized swelling, mass and lump, right upper limb . TECHNIQUE: Grayscale and Doppler ultrasound images of the were obtained. COMPARISON: None. FINDINGS: 4.1 x 3.9 x 1.5 cm irregular, hypoechoic subcutaneous fluid collection with mild peripheral and no internal vascular flow in the area of clinical concern in the right upper arm. IMPRESSION: Irregular, 4.1 cm subcutaneous fluid collection in the right upper arm, based on imaging may represen t a resolving hematoma, abscess, or necrotic node. Given the history, a subcutaneous abscess is favor ed. Reviewed, dictated and finalized at location K. SSOGRAPH OPERATOR IMPRESSION: Irregular, 4.1 cm subcutaneous fluid collection in the right upper arm, based o n imaging may represent a resolving hematoma, abscess, or necrotic node. Given the history, a subcutaneous abscess is favored.
== END 2022-03-09 13:13 | disposition home or self-care (01) ==
LOC: CHSIMG 13:14
PROVIDERS: PCP Family Medicine; Visit Provider Family Medicine
DX: R22.31 Localized swelling, mass and lump, right upper limb (principal)
CPT/HCPCS: 76882

== ENCOUNTER 2022-06-14 13:08 | Outpatient (CLI) | payer OTHER, SELFPAY ==
--- NOTE | ~2022-06-14 | XR_ITS ---
XR_CERV2-3V_CR 06/14/2022 13:24 Indication: Cervical radiculopathy Procedure: 5 views cervical spine Comparison: No prior studies for comparison. Findings: Straightening of cervical lordosis. Vertebral body heights are maintained. No significant d isc narrowing. No prevertebral soft tissue swelling. Odontoid process is normal. Lung apices are unre markable. Mild multilevel uncinate hypertrophy. Impression: 1: Mild cervical spondylosis. Reviewed, dictated and finalized at location L. Impression: 1: Mild cervical spondylosis.
== END 2022-06-14 13:09 | disposition home or self-care (01) ==
LOC: CHSIMG 13:11
PROVIDERS: PCP Family Medicine; Visit Provider Family Medicine
DX: M54.12 Radiculopathy, cervical region (principal); G95.9 Disease of spinal cord, unspecified; M43.06 Spondylolysis, lumbar region
CPT/HCPCS: 72040

== ENCOUNTER 2023-02-14 09:58 | Outpatient (CLI) | payer OTHER, SELFPAY ==
--- NOTE | ~2023-02-14 | XR_ITS ---
EXAMINATION: XR abdomen/kub 1V INDICATION: Right flank pain and hematuria TECHNIQUE: Supine views of the abdomen were obtained on 2 radiographs. COMPARISON: None FINDINGS: No urolithiasis is identified. The bowel gas pattern is normal. There is mild osteoarthriti s of the hips. IMPRESSION: 1. No urolithiasis identified. Reviewed, dictated and finalized at location L. CTICIDE MAKER
== END 2023-02-14 09:59 | disposition home or self-care (01) ==
LOC: CHSIMG 10:00
PROVIDERS: PCP Nurse Practitioner Family; Visit Provider Nurse Practitioner Family
DX: R10.9 Unspecified abdominal pain (principal)
CPT/HCPCS: 74018

== ENCOUNTER 2023-03-17 15:02 | Outpatient (CLI) | payer OTHER, SELFPAY ==
--- NOTE | ~2023-03-17 | XR_ITS ---
EXAM: XR abdomen/kub 1V DATE: 03/17/2023 15:19 HISTORY: RT flank pain x 4-5 days hematuria 2 wks ago hx kidney stone . COMPARISON: 02/14/2023. FINDINGS: Clear lung bases. Normal bowel gas pattern. No organomegaly. No abnormal abdominal calcifi cation. Mild bilateral hip osteoarthritic arthritis and pelvic enthesopathy. IMPRESSION: No urolithiasis identified. Reviewed, dictated and finalized at location K. OPRACTOR SOLE PRACTITIONER IMPRESSION: No urolithiasis identified.
== END 2023-03-17 15:03 | disposition home or self-care (01) ==
LOC: CHSIMG 15:03
PROVIDERS: PCP Nurse Practitioner Family; Visit Provider Nurse Practitioner Family
DX: M54.9 Dorsalgia, unspecified (principal)
CPT/HCPCS: 74018

== ENCOUNTER 2023-06-28 15:27 | Outpatient (NON) | payer OTHER, SELFPAY ==
[2023-06-28 15:38] LABS: Appearance Urine Clear (Clear); Bilirubin Urine 1+ (Negative); Blood Urine Negative (Negative); Color Urine Dark Yellow (Yellow); Glucose Urine UA Negative (Negative); Ketones Urine Trace (Negative); Leukocyte Esterase Ur Negative LEU/UL (Negative); Nitrate Urine Negative (Negative); Protein Urine Trace (Negative); Specific Grav Ur >= 1.030 (1.010-1.020)
[2023-06-28 15:45] LABS: Add Urine Microscopic? YES; Bacteria Urine 4+ /hpf; Mucus Urine Heavy /lpf; RBC Urine 0-2 /hpf (0-2); Squamous Epithelial Cell Urine Rare /hpf (Few); WBC Urine 0-3 /hpf (0-3)
== END 2023-06-28 15:28 | disposition home or self-care (01) ==
LOC: CHSLAB 15:28
PROVIDERS: Visit Provider Nurse Practitioner Family
DX: N20.0 Calculus of kidney (principal)
CPT/HCPCS: 81001

== ENCOUNTER 2023-06-28 15:44 | Outpatient (CLI) | payer OTHER, SELFPAY ==
[2023-06-28 16:19] LABS: Basophils Absolute Auto 0.05 K/mm3 (0.00-0.10); Basophils Percent Auto 0.5 % (0.0-1.0); Eosinophils Absolute Auto 0.35 K/mm3 (0.02-0.50); Eosinophils Percent Auto 3.2 % (1.0-6.0); Hematocrit 43.5 % (40.0-54.0); Hemoglobin 13.9 g/dL (14.0-18.0); Immature Granulocyte Absolute 0.04 K/mm3 (0.00-0.00); Immature Granulocyte Percent A 0.4 % (0.0-0.0); Lymphocytes Absolute Auto 2.05 K/mm3 (1.10-4.50); Lymphocytes Percent Auto 18.6 % (18.0-42.0); Mean Corpuscular Hemoglobin 29.2 pg (27.0-31.0); Mean Corpuscular Volume 91.4 fL (78.0-102.0); Mean Platelet Volume 9.4 fl (8.7-11.0); Monocytes Percent Auto 8.2 % (2.0-11.0); Neutrophils Absolute Auto 7.63 K/mm3 (1.70-7.20); Neutrophils Percent Auto 69.1 % (50.0-70.0); Platelet Count Result 288 K/mm3 (150-420); Red Blood Count 4.76 M/mm3 (4.70-6.10)
[2023-06-28 16:31] LABS: Hemoglobin A1C 6.1 % (<5.7)
[2023-06-28 16:32] LABS: Alanine Aminotransferase 31 U/L (16-63); Albumin Level 3.6 g/dL (3.4-5.0); Alkaline Phosphatase 64 U/L (46-116); Anion Gap 7 mmol/L (4-12); Aspartate Amino Transferase 13 U/L (15-37); Bilirubin,Total 0.7 mg/dL (0.00-1.00); Blood Urea Nitrogen 22 mg/dL (7-18); Calcium 8.7 mg/dL (8.5-10.1); Carbon Dioxide 31 mmol/L (21-32); Chloride 103 mmol/L (98-108); Cholesterol 154 mg/dL (0-200); Creatine Kinase 39 U/L (39-308); Estimated Glomerular Filt Rate > 60; Glucose 120 mg/dL (70-99); HDL Direct 44 mg/dL (40-60); LDL Cholesterol Calculated 100 mg/dL (<130); Magnesium 1.9 mg/dL (1.8-2.4); Osmolality Calculated 296 mOsm/kg (285-295); Potassium 4.5 mmol/L (3.5-5.1); Sodium 141 mmol/L (136-145); Total Protein 7.3 g/dL (6.4-8.2); Triglycerides 52 mg/dL (0-150); Uric Acid 5.3 mg/dL (3.5-7.2)
[2023-06-29 15:08] LABS: Vitamin D 25 Hydroxy 20 ng/mL (30-100)
== END 2023-06-28 15:45 | disposition home or self-care (01) ==
LOC: CHSLAB 15:46
PROVIDERS: PCP Nurse Practitioner Family; Visit Provider Nurse Practitioner Family
DX: R73.03 Prediabetes (principal); R82.998 Other abnormal findings in urine; M25.50 Pain in unspecified joint; I10 Essential (primary) hypertension; Z79.899 Other long term (current) drug therapy
CPT/HCPCS: 36415; 80053; 80061; 82306; 82550; 83036; 83735; 84550; 85025

== ENCOUNTER 2023-10-25 14:44 | Outpatient (CLI) | payer OTHER, SELFPAY ==
--- NOTE | ~2023-10-25 | XR_ITS ---
EXAMINATION: XR ankle RT min 3V DATE: 10/25/2023 15:13 INDICATION: Right ankle injury and pain. TECHNIQUE: 4 views of right ankle were obtained. COMPARISON: Right ankle radiographs 12/17/2019 FINDINGS: Bone alignment is normal. No acute fracture. There is internal fixation of distal fibula wi th lateral plate and screws. There are 2 fixation bands spanning the distal tibia and fibula. Joint s paces are normal. There are enthesophytes at the posterior and plantar aspects of calcaneal tuberosit y. There is ankle soft tissue swelling. IMPRESSION: 1. No acute fracture. Reviewed, dictated and finalized at location A. IMPRESSION: 1. No acute fracture.
[2023-10-25 15:08] LABS: Basophils Absolute Auto 0.05 K/mm3 (0.00-0.10); Basophils Percent Auto 0.4 % (0.0-1.0); Eosinophils Absolute Auto 0.24 K/mm3 (0.02-0.50); Hematocrit 44.1 % (40.0-54.0); Hemoglobin 14.3 g/dL (14.0-18.0); Immature Granulocyte Absolute 0.04 K/mm3 (0.00-0.00); Immature Granulocyte Percent A 0.3 % (0.0-0.0); Lymphocytes Absolute Auto 1.71 K/mm3 (1.10-4.50); Lymphocytes Percent Auto 14.3 % (18.0-42.0); Mean Corpuscular HGB Conc 32.4 g/dL (32-36); Mean Corpuscular Hemoglobin 29.2 pg (27.0-31.0); Mean Platelet Volume 9.1 fl (8.7-11.0); Monocytes Absolute Auto 0.77 K/mm3 (0.10-0.90); Monocytes Percent Auto 6.4 % (2.0-11.0); Neutrophils Absolute Auto 9.15 K/mm3 (1.70-7.20); Neutrophils Percent Auto 76.6 % (50.0-70.0); Platelet Count Result 352 K/mm3 (150-420); Red Cell Distribution Width 14.1 % (11.6-14.4)
[2023-10-25 15:52] LABS: Alanine Aminotransferase 30 U/L (16-63); Albumin Level 3.6 g/dL (3.4-5.0); Alkaline Phosphatase 78 U/L (46-116); Anion Gap 6 mmol/L (4-12); Aspartate Amino Transferase 17 U/L (15-37); Bilirubin,Total 0.6 mg/dL (0.00-1.00); Blood Urea Nitrogen 18 mg/dL (7-18); Calcium 8.8 mg/dL (8.5-10.1); Carbon Dioxide 31 mmol/L (21-32); Chloride 102 mmol/L (98-108); Estimated Glomerular Filt Rate > 60; Ferritin 106 ng/mL (26-388); Free T4 Free Thyroxine 1.12 ng/dL (0.76-1.46); Glucose 154 mg/dL (70-99); Iron 62 ug/dL (65-175); Osmolality Calculated 292 mOsm/kg (285-295); Potassium 3.9 mmol/L (3.5-5.1); Sodium 139 mmol/L (136-145); Thyroid Stimulating Hormone 1.87 uIU/mL (0.36-3.74); Total Protein 7.2 g/dL (6.4-8.2); Vitamin B12 809 pg/mL (193-986)
[2023-10-27 09:47] LABS: Hemoglobin A1C 6.1 % (<5.7)
[2023-10-27 10:09] LABS: Vitamin D 25 Hydroxy 27 ng/mL (30-100)
[2023-10-29 09:18] LABS: Testosterone Free 36.9 pg/mL (35.0-155.0); Testosterone Total 214 ng/dL (250-1100)
== END 2023-10-25 14:45 | disposition home or self-care (01) ==
LOC: CHSLAB 14:45
PROVIDERS: PCP Nurse Practitioner Family; Visit Provider Nurse Practitioner Family
DX: I10 Essential (primary) hypertension (principal); R53.83 Other fatigue; R73.9 Hyperglycemia, unspecified; E55.9 Vitamin D deficiency, unspecified; Z79.899 Other long term (current) drug therapy; M25.571 Pain in right ankle and joints of right foot; R73.09 Other abnormal glucose
CPT/HCPCS: 36415; 73610; 80053; 82306; 82607; 82728; 83036; 83540; 84402; 84403; 84439; 84443; 85025

== ENCOUNTER 2024-02-14 12:56 | Outpatient (NON) | payer OTHER, SELFPAY ==
[2024-02-14 13:14] LABS: Add Urine Microscopic? NO; Appearance Urine Clear (Clear); Bilirubin Urine Negative (Negative); Blood Urine Trace-intact (Negative); Color Urine Light Yellow (Yellow); Glucose Urine UA Negative (Negative); Ketones Urine Negative (Negative); Leukocyte Esterase Ur Negative LEU/UL (Negative); Nitrate Urine Negative (Negative); Protein Urine Negative (Negative); Specific Grav Ur >= 1.030 (1.010-1.020); Urobilinogen Urine 0.2 mg/dL (0.2-1.0); pH Urine 5.5 (5.0-8.0)
== END 2024-02-14 12:57 | disposition home or self-care (01) ==
LOC: CHSLAB 12:57
PROVIDERS: PCP Nurse Practitioner Family; Visit Provider Nurse Practitioner Family
DX: Z87.898 Personal history of other specified conditions (principal)
CPT/HCPCS: 81003

== ENCOUNTER 2025-01-23 08:07 | Emergency (ER) | payer SELFPAY ==
[2025-01-23] VITALS (48 sets, daily range): BP systolic 135–191; BP diastolic 87–108; PULSE 57–71; RESP 12–21; TEMP 36.1–36.9; O2SAT 95–100
--- NOTE | ~2025-01-23 | CT_ITS ---
EXAMINATION: CT brain wo con COMPARISON: None HISTORY: Chest pain with elevated blood pressure TECHNIQUE: Axial images were obtained through the brain without IV contrast. CT scan performed using dose optimization techniques including the following automated exposure control; adjustment of mA and/or kV; use of iterative reconstruction technique. Automatic exposure control was used to reduce radiation dose. Permanent radiation dose record is archived to PACS. FINDINGS: No acute infarct or parenchymal hemorrhage. No abnormal mass or mass effect. No midline shift. No extra-axial fluid collections. No hydrocephalus. . Mastoid air cells unremarkable. Sinuses and orbits unremarkable. No acute fracture. No significant facial or scalp soft tissue swelling evident. No radiopaque foreign body is seen. Impression: 1.No acute intracranial abnormality. Reviewed, dictated and finalized at location P. OR SAS PROGRAMMER Impression: 1.No acute intracranial abnormality.
--- NOTE | ~2025-01-23 | XR_ITS ---
Examination: XR chest 1V portable Clinical History: Chest pain Comparison: 12/08/2021 Technique: Portable AP Findings: Heart size normal. Lungs clear. No acute bony abnormality. IMPRESSION: 1. No acute cardiopulmonary findings given portable technique. Reviewed, dictated and finalized at location R. O STATION OPERATOR
--- NOTE | ~2025-01-23 | NM_ITS ---
EXAM/PROCEDURE: NM lung vent and perfusion HISTORY: Chest tightness with elevated D-dimer COMPARISON: Portable chest x-ray same date TECHNIQUE: Standard technique for VQ scan performed Radiotracer: 37.3 mCi DTPA used for ventilatory portion of today's exam. 5.2 mCi of microaggregated albumin used for the perfusion phase. FINDINGS: No perfusion or ventilation abnormality identified. IMPRESSION: Negative VQ scan with no evidence of pulmonary embolus. Reviewed, dictated and finalized at location A. E TEAM MEMBER
--- NOTE | 2025-01-23 08:08 | ECG_ITS ---
Test Date: 2025-01-23 08:13:44 Measurements Intervals [place] Rate: 66 P: 54 MS: 193 QRS: 2 QRSD: 104 T: 44 QT: 387 QTc: 406 Interpretive Statements SINUS RHYTHM POSSIBLE RIGHT VENTRICULAR CONDUCTION DELAY [RSR (QR) IN V1/V2] No previous ECG available for comparison Electronically Signed On 01-23-2025 08:38:16 CAT SCANNER OPERATOR by Andrés Monaco M.D.
[2025-01-23] MEDS: METOPROLOL TARTRATE INJ 5 MG/5 ML VIAL IV PUSH (08:29)
[2025-01-23 08:33] LABS: Hematocrit 44.6 % (40.0-54.0); Hemoglobin 13.9 g/dL (14.0-18.0); Immature Granulocyte Percent A 0.3 % (0.0-0.0); Lymphocytes Absolute Auto 1.70 K/mm3 (1.10-4.50); Mean Corpuscular HGB Conc 31.2 g/dL (32-36); Mean Corpuscular Hemoglobin 28.5 pg (27.0-31.0); Mean Corpuscular Volume 91.4 fL (78.0-102.0); Nucleated Red Blood Cells Absolute Auto 0.00 K/mm3 (0.00-0.00); Nucleated Red Blood Cells Perc 0.0 % (0-0.0); Platelet Count Result 305 K/mm3 (150-420); Red Blood Count 4.88 M/mm3 (4.70-6.10); White Blood Count 10.6 K/mm3 (4.8-10.8)
[2025-01-23 08:48] LABS: Alanine Aminotransferase 22 U/L (6-50); Albumin Level 4.3 g/dL (3.5-5.1); Alkaline Phosphatase 66 U/L (38-126); Anion Gap 9 mmol/L (4-12); Aspartate Amino Transferase 24 U/L (17-59); Bilirubin,Total 0.4 mg/dL (0.2-1.3); Blood Urea Nitrogen 24 mg/dL (9-20); Calcium 9.5 mg/dL (8.4-10.2); Carbon Dioxide 30 mmol/L (22-30); Chloride 104 mmol/L (98-107); Estimated Glomerular Filt Rate > 60; Glucose 149 mg/dL (65-110); Lipase 47 U/L (23-300); Osmolality Calculated 303 mOsm/kg (285-295); Potassium 4.6 mmol/L (3.4-5.0); Sodium 143 mmol/L (137-145); Total Protein 7.6 g/dL (6.3-8.2)
[2025-01-23 08:50] LABS: INR 0.9; Partial Thromboplastin Time 26.6 Sec (23.9-30.70); Prothrombin Time 10.4 Seconds (9.50-12.1)
[2025-01-23 08:51] LABS: Add Urine Microscopic? NO; Appearance Urine Clear (Clear); Glucose Urine UA Negative (Negative); Leukocyte Esterase Ur Negative LEU/UL (Negative); Nitrate Urine Negative (Negative); Specific Grav Ur 1.020 (1.010-1.020)
[2025-01-23 09:00] LABS: NT Pro B Type Natriuretic Pept 32 pg/mL (19.9-100); Troponin I < 0.012 ng/mL (0.000-0.034)
[2025-01-23] MEDS: ACETAMINOPHEN 500 MG TABLET 1000 MG PO (09:07)
[2025-01-23 09:09] LABS: Influenza A QL RT-PCR Negative (Negative); Influenza B QL RT-PCR Negative (Negative); RSV RNA, RT-PCR Negative (Negative); SARS-CoV-2 RNA PCR Negative (Negative)
--- NOTE | 2025-01-23 10:49 | ED.ARRPALP ---
HPI - Arrhythmia/Palpitations General Chief Complaint: Arrhythmia/Palpitations Stated Complaint: palpitations/chest pain Source: patient and family Mode of arrival: ambulatory Limitations: no limitations History of Present Illness HPI narrative: This is a 49-year-old male that presents with some elevated blood pressure has been having chest tightness for the last week and a half with no shortness of breath no nausea vomiting no fever chills patient recently obtained a blood pressure monitor and blood pressure according to his home blood pressure readings were above 200 systolic. Patient currently not having any abdominal pain no dysuria no flank pain no hematuria. Patient with a history of a hypertension and was taken off his blood pressure medication approximately 1 year ago with history of lupus. Onset (ago): week(s) Duration: intermittent Severity: moderate Context: occurred during rest Related Data Allergies Allergy/AdvReac Type Severity Reaction Status Date / Time iohexol (From contrast - CT, Allergy Hives Verified 01/23/25 09:57 X-RAY) Review of Systems Review of Systems: All systems reviewed & are unremarkable except as noted in HPI and below PMFSH Past Medical History Medical History Hypokalemia Obesity, Class III, BMI 40-49.9 (morbid obesity) Prediabetes Benign essential HTN Overweight Vertigo Vision abnormalities Dizziness Tear of deltoid ligament of right ankle Ankle syndesmosis disruption Closed right fibular fracture Lupus (systemic lupus erythematosus) Rheumatoid arthritis Surgical History Surgical History History of adenoidectomy S/P foot surgery, right Family History Family History Father Hypertension Other Arthritis Diabetes mellitus Nerve disorder Social History Social History Years smoked: 10 Smoking status: Former smoker Second hand tobacco smoke exposure: No Smoking end date: 03/22/04 Alcohol intake: current Alcohol use details: occasionally drink- maybe 3 beers a month Substance use: never Living arrangements: alone Occupation/Education: occupation Additional occupation/education comments: [employer] Spiritual care concerns: No Exam Const: General: healthy appearing and no acute distress Nutritional Appearance: well nourished Orientation/consciousness: patient oriented x3 Limitations: no limitations Chest: Chest palpation & inspection: normal inspection of the chest Resp: Effort & Inspection: normal respiratory effort Auscultation: clear to auscultation bilaterally Cardio: Rate: regular rate Rhythm: regular rhythm GI: GI Palp: Yes Soft to palpation Auscultation: normal bowel sounds Back/Spine/Pelvis: Back: no CVA tenderness Skin: General skin exam: normal color Rashes: no rashes Neuro: General: patient oriented x3, moves all extremities and no meningeal signs Extrem: General: normal to inspection Course Course Emergency Course: Medical decision making narrative: The patient was evaluated by myself in the emergency department. History obtained from the patient was an independent historian and physical exam performed witnessed by nurse. External medical records were reviewed at this time. EKG performed shows no acute ST or T changes Labs were unremarkable except for elevated D-dimer at 1.21, a V/Q scan ordered and reviewed and negative and reviewed with patient and family. Patient had elevated blood pressure and received 5mg IV metoprolol. Chest x-ray with no acute cardiopulmonary abnormalities. A repeat assessment: Patient doing well repeat exam no acute distress Symptoms have improved since arrival to the emergency department, troponin was negative Repeat vitals have improved blood pressure down to 156/102 initially when he came in it was systolic proximally 190s. Patient is pleased with discussion after radical shared medical decision making and agrees with discharge. All questions answered to the patient's satisfaction. Follow up with primary within next 3 to 5 days. Vital Signs Vital signs: Vital Signs Temperature 36.1 C L 01/23/25 08:10 Pulse Rate 67 01/23/25 08:10 Respiratory Rate 20 01/23/25 08:10 Blood Pressure 176/108 H 01/23/25 08:10 Pulse Oximetry 100 01/23/25 08:10 Oxygen Delivery Room Air 01/23/25 08:10 Temperature 36.1 C L 01/23/25 08:10 Pulse Rate 59 L 01/23/25 10:01 Respiratory Rate 12 01/23/25 10:01 Blood Pressure 151/99 H 01/23/25 10:01 Pulse Oximetry 98 01/23/25 10:01 Oxygen Delivery Room Air 01/23/25 08:10 MDM - Arrhythmia/Palpitations Lab Data 01/23/25 08:28 01/23/25 08:28 Labs: Lab Results 01/23/25 01/23/25 Range/Units 08:28 08:44 WBC 10.6 (4.8-10.8) K/mm3 RBC 4.88 (4.70-6.10) M/mm3 Hgb 13.9 L (14.0-18.0) g/dL Hct 44.6 (40.0-54.0) % MCV 91.4 (78.0-102.0) fL MCH 28.5 (27.0-31.0) pg MCHC 31.2 L (32-36) g/dL RDW 14.0 (11.6-14.4) % Plt Count 305 (150-420) K/mm3 MPV 9.6 (8.7-11.0) fl Immature Gran % (Auto) 0.3 H (0.0-0.0) % Neut % (Auto) 71.9 H (50.0-70.0) % Lymph % (Auto) 16.1 L (18.0-42.0) % [place] % (Auto) 7.9 (2.0-11.0) % Eos % (Auto) 3.3 (1.0-6.0) % Baso % (Auto) 0.5 (0.0-1.0) % Lymph # (Auto) 1.70 (1.10-4.50) K/mm3 [place] # (Auto) 0.84 (0.10-0.90) K/mm3 Eos # (Auto) 0.35 (0.02-0.50) K/mm3 Baso # (Auto) 0.05 (0.00-0.10) K/mm3 Abs Immat Gran (auto) 0.03 H (0.00-0.00) K/mm3 Absolute Neuts (auto) 7.62 H (1.70-7.20) K/mm3 Absolute Nucleated RBC 0.00 (0.00-0.00) K/mm3 Nucleated RBC % 0.0 (0-0.0) % PT 10.4 (9.50-12.1) Seconds INR 0.9 APTT 26.6 (23.9-30.70) Sec D-Dimer 1.21 H (0.19-0.50) mg/L Sodium 143 (137-145) mmol/L Potassium 4.6 (3.4-5.0) mmol/L Chloride 104 (98-107) mmol/L Carbon Dioxide 30 (22-30) mmol/L Anion Gap 9 (4-12) mmol/L BUN 24 H (9-20) mg/dL Creatinine 0.84 (0.7-1.3) mg/dL Estim Creat Clear Calc Not Reportable Estimated GFR > 60 (59 - ) Glucose 149 H (65-110) mg/dL Calculated Osmolality 303 H (285-295) mOsm/kg Calcium 9.5 (8.4-10.2) mg/dL Total Bilirubin 0.4 (0.2-1.3) mg/dL AST 24 (17-59) U/L ALT 22 (6-50) U/L Alkaline Phosphatase 66 (38-126) U/L Troponin I < 0.012 (0.000-0.034) ng/mL NT-Pro-B Natriuret Pep 32 (19.9-100) pg/mL Total Protein 7.6 (6.3-8.2) g/dL Albumin 4.3 (3.5-5.1) g/dL Lipase 47 (23-300) U/L Urine Color Light yellow (Yellow) Urine Appearance Clear (Clear) Urine pH 6.0 (5.0-8.0) Ur Specific [place] 1.020 (1.010-1.020) Urine Protein Negative (Negative) Urine Glucose (UA) Negative (Negative) Urine Ketones Negative (Negative) Ur Blood (Man) Negative (Negative) Urine Nitrate Negative (Negative) Urine Bilirubin Negative (Negative) Urine Urobilinogen 0.2 (0.2-1.0) mg/dL Leukocyte Esterase Rfl Negative (Negative) ERA/UL Influenza A (RT-PCR) Negative (Negative) Influenza B (RT-PCR) Negative (Negative) RSV (RT-PCR) Negative (Negative) SARS-CoV-2 RNA (RT-PCR) Negative (Negative) Critical Care Time Critical Care Time Critical Care Time: No Discharge Plan Discharge Clinical Impression: Hypertension Qualifiers: Hypertension type: primary hypertension Qualified Code(s): I10 - Essential (primary) hypertension Patient Disposition: Home Condition: Stable Instructions: Antibiotic Form Additional Instructions: Advised patient to take medication as prescribed and to follow with primary within the next 3 to 5 days for further evaluation and treatment. Patient Language: Greenlandic Prescriptions: New losartan-hydrochlorothiazide 50-12.5 mg tablet 1 tablet PO DAILY Qty: 20 0RF No Action meloxicam 15 mg tablet See Rx Instructions .ROUTE .COMPLEX Qty: 90 0RF Dose Instruction: Take 1 tablet by mouth once daily Rx Instructions: Take 1 tablet by mouth once daily Follow-up/Referrals: Rosalina Kirk NP [Primary Care Provider, [facility]] Time of Disposition: 13:19
== END 2025-01-23 13:30 | disposition home or self-care (01) ==
PROVIDERS: Emergency Provider Emergency Medicine; PCP Nurse Practitioner Family
DX: I10 Essential (primary) hypertension (principal); Z87.891 Personal history of nicotine dependence
CPT/HCPCS: 36415; 70450; 71045; 78582; 80053; 81003; 83690; 83880; 84484; 85025; 85380; 85610; 85730; 87637; 93005; 96374; 99284; A9567; A9270; A9540; J0616